=== PATIENT | female | born 1975 | race African-American/Black ===

== ENCOUNTER 2018-08-27 21:19 | Emergency (ER) | payer MEDICAID ==
[~2018-08-27] VITALS: Ht 170.2 cm; Wt 79.4 kg
[2018-08-27 21:45] VITALS: BP 152/96
[2018-08-27] MEDS ORDERED: IBUPROFEN600 MG ORAL (21:57)
[2018-08-27] MEDS ORDERED: HYDROCODON-ACE1 EA15 ORAL (21:57)
--- NOTE | 2018-08-27 21:57 | Emergency Room Report ---
History of Present Illness General Chief Complaint: Pain Source: Patient Present Illness HPI Is a 43-year-old female who is right-hand dominant. She has no past medical history. She presents with chief complaint of back pain and left wrist pain. Onset was yesterday. 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 She then felt a sharp pain in her back going down her left leg. She also complaining of left wrist pain. No other trauma. Worse with movement. Denies any fever chills but denies any nausea vomiting. Denies any incontinence of bowel or urine. [id number] medicine is not helping. Pain is 8 out of 10. Better with rest. Worse with movement. Allergies: Coded Allergies: CODEINE (Verified Allergy, Unknown, 08/27/18) Patient History Past Medical History: see triage record, old chart reviewed Past Surgical History: none Pertinent Family History: none Social History: Denies: smoking Last Menstrual Period: 2014 Now: No : 2 Para: 2 Immunizations: other Reviewed Nursing Documentation: PMH: Agreed; PSxH: Agreed Nursing Documentation-PMH Past Medical History: No History, Except For Hx Cardiac Problems: Yes - hyperlipidemia Review of Systems Eye: Denies: eye pain, blurred vision ENT: Denies: ear pain, nose congestion, throat swelling Respiratory: Denies: cough, shortness of breath Cardiovascular: Denies: chest pain, palpitations Gastrointestinal: Denies: abdominal pain, diarrhea, nausea, vomiting Musculoskeletal: Reports: back pain, joint pain Skin: Denies: rash Neurological: Denies: headache, numbness Endocrine: Denies: increased thirst, increased urine Hematologic/Lymphatic: Denies: easy bruising All Other Systems: negative except mentioned in HPI Physical Exam Vital Signs Date Time Temp Pulse Resp B/P (MAP) Pulse Ox O2 Delivery O2 Flow Rate FiO2 08/27/18 21:35 97.7 81 18 154/99 97 Room Air vitals with high blood pressure Sp02 EP Interpretation: reviewed, normal General Appearance: well appearing, no apparent distress, alert Head: normocephalic, atraumatic Eyes: bilateral eye PERRL, bilateral eye EOMI ENT: hearing grossly normal, normal pharynx Neck: full range of motion, supple, no meningismus Respiratory: chest non-tender, lungs clear, normal breath sounds Cardiovascular #1: regular rate, rhythm, no murmur Gastrointestinal: normal bowel sounds, non tender, no mass, no organomegaly, no bruit, non-distended Musculoskeletal: back normal - tenderness along the left lower lumbar paraspinous muscle. No midline tendernes. No anesthesia., gait/station normal , normal range of motion, other - Left wrist: No deformity. Pulses normal. Pain with movement of the wrist with twisting. Mostly the base of the thumb. Neurologic: alert, oriented x3 Psychiatric: mood/affect normal Skin: warm/dry Procedures Splinting Splinting : Consent: Verbal Location: left wrist Pre-Made Type: velcro Splint: volar Pre-Proc Neuro Vasc Exam: normal Post-Proc Neuro Vasc Exam: normal Patient Tolerated: Well Complications: None Medical Decision Making Diagnostic Impression: Primary Impression: Sciatica of left side Additional Impression: Left wrist sprain Qualified Codes: S63.502A - Unspecified sprain of left wrist, initial encounter ER Course Patient with a wrist sprain. No fracture to indicate x-rays. No evidence of any septic joint. She also has evidence of sciatica. This may be secondary to stenosis versus herniation. No evidence of cauda equina syndrome, spinal epidural abscess or neoplastic process. Last Vital Signs Date Time Temp Pulse Resp B/P (MAP) Pulse Ox O2 Delivery O2 Flow Rate FiO2 08/27/18 21:35 97.7 81 18 154/99 97 Room Air Status: improved Disposition: HOME, SELF-CARE Condition: Stable Scripts Ibuprofen* (MOTRIN*) 600 Mg Tablet 600 MG ORAL THREE TIMES A DAY, #30 TAB 0 Refills Prov: Miquel Hollis MD 08/27/18 Hydrocodone/Acetaminophen 5-325* (HYDROCODONE/ACETAMINOPHEN 5-325*) 1 Each Tablet 1 TAB ORAL Q6H PRN for For Pain, #20 TAB 0 Refills Prov: Miquel Hollis MD 08/27/18 Referrals: NOT CHOSEN IPA/,REFERRING (PCP) Additional Instructions: No heavy lifting. Lift the legs and either back. Follow-up your doctor in 7 days. Return for worsening of symptom. Miquel Hollis MD Aug 27, 2018 21:57
[2018-08-27] MEDS ORDERED: Norco 5mg/325mg tab ORAL ONE (22:00)
[2018-08-27 22:16] VITALS: BP 151/92
== END 2018-08-27 22:16 | disposition home or self-care (01) ==
LOC: EMR 21:38
DX: S63.502A Unspecified sprain of left wrist, initial encounter (principal); M54.42 Lumbago with sciatica, left side; E78.5 Hyperlipidemia, unspecified; Z88.5 Allergy status to narcotic agent; X50.0XXA Overexertion from strenuous movement or load, initial encounter; Y92.89 Other specified places as the place of occurrence of the external cause
CPT/HCPCS: 99283

== ENCOUNTER 2018-09-15 23:09 | Emergency (ER) | payer MEDICAID ==
[~2018-09-15] VITALS: Ht 170.2 cm; Wt 78.0 kg
[~2018-09-15 23:09] MED LIST: HYDROCODON-ACE1 EA15 ORAL; IBUPROFEN600 MG ORAL
[2018-09-15] MEDS ORDERED: ATORVASTATIN CA20 MG ORAL (23:26)
[2018-09-15] MEDS ORDERED: ASPIR 8181 MG ORAL (23:26)
[2018-09-16] MEDS ORDERED: IBUPROFEN600 MG ORAL (01:28)
[2018-09-16] MEDS ORDERED: ZITHROMAX250 MG ORAL (01:28)
[2018-09-16 01:35] VITALS: BP 149/97
--- NOTE | 2018-09-16 11:01 | Diagnostic Imaging Report ---
Indication: Shortness of breath Technique: One view of the chest Comparison: none Findings: Lungs and pleural spaces are clear. Heart size is normal Impression: No acute process
--- NOTE | 2018-09-17 08:30 | Emergency Room Report ---
History of Present Illness General Chief Complaint: Pain Source: Patient Present Illness HPI Patient's 43-year-old female presented after increased right-sided shoulder pain. The patient reports having increased pain associated with cough. She had recent sore throat. She had been not been of any fever. Pain is worse with movements. Is also worse with deep breath. She denies any vomiting or diarrhea. She denies leg pain or swelling. Allergies: Coded Allergies: CODEINE (Verified Allergy, Unknown, 08/27/18) Patient History Past Medical History: see triage record Last Menstrual Period: n/a : 2 Para: 2 Reviewed Nursing Documentation: PMH: Agreed; PSxH: Agreed Nursing Documentation-PMH Past Medical History: No History, Except For Hx Cardiac Problems: Yes - hyperlipidemia Review of Systems All Other Systems: negative except mentioned in HPI Physical Exam Vital Signs Date Time Temp Pulse Resp B/P (MAP) Pulse Ox O2 Delivery O2 Flow Rate FiO2 09/15/18 23:21 97.9 83 18 149/97 97 Room Air General Appearance: well appearing, no apparent distress, alert, GCS 15, non- toxic Head: normocephalic, atraumatic ENT: hearing grossly normal, normal voice Neck: full range of motion, supple Respiratory: no respiratory distress, rhonchi, speaking full sentences Gastrointestinal: normal inspection, soft Musculoskeletal: normal inspection, back normal, no calf tenderness Neurologic: normal inspection, alert, oriented x3, responsive, normal gait Psychiatric: mood/affect normal Skin: no rash Medical Decision Making Diagnostic Impression: Primary Impression: Pneumonia ER Course Patient presented for right-sided chest pain. Differential diagnosis included but was not limited to acute coronary syndrome, pulmonary embolism, pneumonia, aortic dissection, shingles, pneumothorax, aortic dissection, esophageal rupture , pericarditis. Because of complexity of patient's case imaging studies were ordered. Chest x-ray one view read by radiology showed cardiac size without evident infiltrate. The patient was noted to have the leg exam consistent with pneumonia. The patient was given prescription for antibiotics and cough medications. She is advised to recheck with primary care physician. Last Vital Signs Date Time Temp Pulse Resp B/P (MAP) Pulse Ox O2 Delivery O2 Flow Rate FiO2 09/16/18 01:35 97.9 83 18 149/97 97 Room Air Status: improved Disposition: HOME, SELF-CARE Condition: Stable Scripts Azithromycin* (ZITHROMAX*) 250 Mg Tablet 250 MG ORAL DAILY, #6 TAB 0 Refills Take two tables once daily for 1 day, then one tablet once daily for 4 days. Prov: Saeid Hou MD 09/16/18 Ibuprofen* (MOTRIN*) 600 Mg Tablet 600 MG ORAL Q8H PRN for For Pain, #30 TAB 0 Refills Prov: Saeid Hou MD 09/16/18 Referrals: NON PHYSICIAN (PCP) Patient Instructions: Pneumonitis Saeid Hou MD Sep 17, 2018 08:30
== END 2018-09-16 01:35 | disposition home or self-care (01) ==
LOC: EMR 23:39
DX: J18.9 Pneumonia, unspecified organism (principal); R05 Cough; M25.511 Pain in right shoulder; Z88.6 Allergy status to analgesic agent
CPT/HCPCS: 71045; 99282

== ENCOUNTER 2019-03-06 20:35 | Emergency (ER) | payer MEDICAID ==
[~2019-03-06] VITALS: Ht 170.2 cm; Wt 79.4 kg
[~2019-03-06 20:35] MED LIST changes: +ASPIR 8181 MG ORAL; +ATORVASTATIN CA20 MG ORAL; +ZITHROMAX250 MG ORAL
--- NOTE | 2019-03-06 20:46 | NUR ---
ED Nurse Note: Pt came from home c/o pain on left side since January 2019 and pain on left mid back since January 2019 but worse today. / pain dul constant pain. No trauma.
[2019-03-06 20:47] VITALS: BP 149/99
[2019-03-06] MEDS ORDERED: Ketorolac 30mg Inj IM ONE (21:00)
--- NOTE | 2019-03-06 21:00 | Emergency Room Report ---
History of Present Illness General Chief Complaint: Upper Extremity Injury Source: Patient Present Illness HPI Patient presents with left-sided lower back and also upper back pain. It's been there since February 13. She's been taking Tylenol PM. She's occasionally woke up with sweats. She has a dry nonproductive cough. The pain is rated 7- 7.5/10 and aching and dull. She says that she had this type of pain which had pneumonia in the past. It's worse when she takes a deep breath and changes position. She denies edema or calf pain. No sore throat or nasal congestion. No nausea, vomiting, diarrhea, dysuria. She is not at this time. She has lower back muscle spasms. These are from a prior back injury that's been evaluated. In the past she's taken muscle relaxants but does not have them at this time. There is no numbness or radiation of the pain down her leg. This is also on her left side. Had a work injury with a junior placed in R humerus. No palpitations, nausea, vomiting, diarrhea, dysuria, abdominal pain, depression , visual changes, headache. Allergies: Coded Allergies: CODEINE (Verified Allergy, Unknown, 08/27/18) Patient History Past Medical History: see triage record Social History: Denies: smoking Social History Narrative Took [employer] here - disabled Last Menstrual Period: na Now: No : 2 Para: 2 Reviewed Nursing Documentation: PMH: Agreed; PSxH: Agreed Nursing Documentation-PMH Past Medical History: No History, Except For Hx Cardiac Problems: Yes - hyperlipidemia Review of Systems All Other Systems: negative except mentioned in HPI Physical Exam Vital Signs Date Time Temp Pulse Resp B/P (MAP) Pulse Ox O2 Delivery O2 Flow Rate FiO2 03/06/19 20:39 98.2 93 18 97 Room Air 03/06/19 20:47 149/99 Sp02 EP Interpretation: reviewed, normal General Appearance: well appearing, no apparent distress, GCS 15 Head: normocephalic, atraumatic Eyes: bilateral eye normal inspection, bilateral eye PERRL ENT: hearing grossly normal, normal voice, moist mucus membranes Neck: full range of motion, supple Respiratory: lungs clear, normal breath sounds, no respiratory distress, speaking full sentences, other - Posterior medial scapular muscle spasm and tenderness to percussion re-creating the pain Cardiovascular #1: regular rate, rhythm, no edema Cardiovascular #2: 2+ radial (R) Gastrointestinal: normal inspection Musculoskeletal: gait/station normal, normal range of motion, no calf tenderness Neurologic: alert, oriented x3, grossly normal Psychiatric: mood/affect normal Skin: no rash Medical Decision Making Diagnostic Impression: Primary Impression: Muscle spasm ER Course Patient presents with left-sided lower and upper back pain. Differential includes muscle spasm, strain, pneumonia, pulmonary embolus amongst others. Based on her physical exam pulmonary embolus is less likely. Patient will be evaluated with a chest x-ray. She will receive Toradol and Soma. CXR normal. Improved. Discussed treatment plan. Patient stable for outpatient observation and treatment. Chest X-Ray Diagnostic Results Chest X-Ray Diagnostic Results : Chest X-Ray Ordered: Yes # of Views/Limited/Complete: 1 View Indication: Chest Pain EP Interpretation: Yes Interpretation: no consolidation, no effusion, no pneumothorax Impression: No acute disease Electronically Signed by: Electronically signed by Luis Antonio Curran MD Last Vital Signs Date Time Temp Pulse Resp B/P (MAP) Pulse Ox O2 Delivery O2 Flow Rate FiO2 03/06/19 22:07 98.2 90 16 147/89 99 Room Air Status: improved Disposition: HOME, SELF-CARE Condition: Improved Scripts Hydrocodone Bit/Acetaminophen 5-325* (NORCO 5-325*) 1 Each Tablet 1 TAB ORAL Q6H PRN for For Pain, #8 TAB 0 Refills Prov: Luis Antonio Curran MD 03/06/19 Methocarbamol* (ROBAXIN*) 500 Mg Tablet 500 MG PO TID, #10 TAB 0 Refills Prov: Luis Antonio Curran MD 03/06/19 Ibuprofen* (MOTRIN*) 600 Mg Tablet 600 MG ORAL Q6H PRN for For Pain, #20 TAB Prov: Luis Antonio Curran MD 03/06/19 Referrals: NON PHYSICIAN (PCP) Luis Antonio Curran MD March 06, 2019 21:00
--- NOTE | 2019-03-06 21:44 | Diagnostic Imaging Report ---
EXAM: XR Chest, 1 View CLINICAL HISTORY: Chest pain TECHNIQUE: Frontal view of the chest. COMPARISON: 09/16/2018 FINDINGS: Lungs: Unremarkable. No consolidation. Pleural space: Unremarkable. No pneumothorax. Heart: Unremarkable. No cardiomegaly. Mediastinum: Unremarkable. Bones/joints: No acute osseous abnormality. IMPRESSION: No acute cardiopulmonary process.
[2019-03-06] MEDS ORDERED: IBUPROFEN600 MG ORAL (22:02)
[2019-03-06] MEDS ORDERED: NORCO 5-325 TA1 EACH ORAL ×2 (22:02→22:04)
[2019-03-06] MEDS ORDERED: ROBAXIN500 MG PO (22:02)
[2019-03-06 22:07] VITALS: BP 147/89
--- NOTE | 2019-03-06 22:08 | NUR ---
ER DISCHARGE NOTE: Patient is cleared to be discharged per ERMD, pt is aox4, on room air, with stable vital signs. pt was given dc and prescription instructions, pt was able to verbalize understanding, pt id bandremoved . pt is able to ambulate with steady gait. pt took all belongings.
== END 2019-03-06 22:07 | disposition home or self-care (01) ==
LOC: EMR 20:54
DX: M62.838 Other muscle spasm (principal); M54.5 Low back pain; M54.6 Pain in thoracic spine; R05 Cough; E78.5 Hyperlipidemia, unspecified; Z88.6 Allergy status to analgesic agent
CPT/HCPCS: 71045; 96372; 99283; J1885

== ENCOUNTER 2019-05-25 22:14 | Emergency (ER) | payer MEDICAID ==
[~2019-05-25] VITALS: Ht 170.2 cm; Wt 77.1 kg
[~2019-05-25 22:14] MED LIST changes: +NORCO 5-325 TA1 EACH ORAL; +ROBAXIN500 MG PO
[2019-05-25 22:55] VITALS: BP 135/94
--- NOTE | 2019-05-25 22:55 | NUR ---
ED Nurse Note: PT WALKED IN C/O ROMERO X 4 WKS, DENIES N/V/ BUT REPORTS DIZZINESS WELL. PT VSS, AMBULATORY W/ STEADY GAIT, DENIES USE OF ILLECIT DRUG USE NOR SMOKING NOR DRINKING ALCOHOL. WILL CONT MONITOR.
[2019-05-25] MEDS ORDERED: DiphenhydrAMINE 50mg/ml Inj IVP ONE (23:00)
[2019-05-25] MEDS ORDERED: Dexamethasone 4mg/ml vial IVP ONE (23:00)
[2019-05-25] MEDS ORDERED: RIBOFLAVIN100 MG PO (23:43)
--- NOTE | 2019-05-25 23:43 | Emergency Room Report ---
History of Present Illness General Chief Complaint: Headache Source: Patient Present Illness HPI 44-year-old female presents with frontal headache, patient has a history of headaches, she describes the headache as achy squeezing, no aggravating or alleviating factors, severity is moderate, came on gradually not sudden, patient denies any chest pain shortness of breath, no visual changes, patient presents for persistent headache. Allergies: Coded Allergies: CODEINE (Verified Allergy, Unknown, 08/27/18) Patient History Past Medical History: see triage record Last Menstrual Period: n/a Reviewed Nursing Documentation: PMH: Agreed; PSxH: Agreed Nursing Documentation-PMH Past Medical History: No History, Except For Hx Cardiac Problems: Yes - hyperlipidemia Review of Systems All Other Systems: negative except mentioned in HPI Physical Exam Vital Signs Date Time Temp Pulse Resp B/P (MAP) Pulse Ox O2 Delivery O2 Flow Rate FiO2 05/25/19 22:35 98.2 88 18 135/94 (108) 97 Room Air Sp02 EP Interpretation: reviewed, normal General Appearance: well appearing, no apparent distress, alert Head: normocephalic, atraumatic Eyes: bilateral eye PERRL, bilateral eye EOMI ENT: uvula midline, moist mucus membranes Neck: supple, thyroid normal, supple/symm/no masses Respiratory: lungs clear, no respiratory distress, no retraction, no accessory muscle use Cardiovascular #1: normal peripheral pulses, regular rate, rhythm, no edema, no gallop, no murmur Gastrointestinal: non tender, soft, no guarding, no rebound Musculoskeletal: normal inspection Neurologic: alert, oriented x3, 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 There are no red flags of ROMERO, not sudden in onset, not maximal in onset, no acute neurological findings, no fever with head stiffness. History of headache yes Low suspicion for subarachnoid hemorrhage, encephalitis, meningitis. Patient given headache cocktail, headache completely resolved, will disposition patient home with return precautions Last Vital Signs Date Time Temp Pulse Resp B/P (MAP) Pulse Ox O2 Delivery O2 Flow Rate FiO2 05/25/19 22:55 98.2 88 18 135/94 97 Room Air Disposition: HOME, SELF-CARE Condition: Stable Scripts Riboflavin (RIBOFLAVIN) 100 Mg Tablet 400 MG PO DAILY, #120 TAB Prov: Erik Payton MD 05/25/19 Referrals: NON PHYSICIAN (PCP) [facility] Patient Instructions: General Headache Without Cause Additional Instructions: The patient was provided with discharge instructions, notified to follow-up with a primary care doctor and or specialist in the next 24-48 hours, and to return to the ED if they have worsening of their symptoms. Please note that this report is being documented using Sonos technology. This can lead to erroneous entry secondary to incorrect interpretation by the dictating instrument. Please make a headache log, follow up with a neurologist Erik Payton MD May 25, 2019 23:43
[2019-05-25 23:45] VITALS: BP 140/88
--- NOTE | 2019-05-25 23:45 | NUR ---
ER DISCHARGE NOTE: Patient is cleared to be discharged per ERMD, pt is aox4, on room air, with stable vital signs. pt was given dc and prescription instructions, pt was able to verbalize understanding, pt id band and iv site removed without complications. pt is able to ambulate with steady gait. pt took all belongings.
== END 2019-05-25 23:45 | disposition home or self-care (01) ==
LOC: EMR 22:20
DX: R51 Headache (principal); Z88.6 Allergy status to analgesic agent; E78.5 Hyperlipidemia, unspecified
CPT/HCPCS: 96374; 96375; 99284; J0780; J1100; J1200

== ENCOUNTER 2019-07-26 13:48 | Emergency (ER) | payer MEDICARE, MEDICAID ==
[~2019-07-26] VITALS: Ht 170.2 cm; Wt 74.8 kg
[~2019-07-26 13:48] MED LIST changes: +RIBOFLAVIN100 MG PO
--- NOTE | 2019-07-26 14:01 | NUR ---
ED Nurse Note: PT WALKED IN TO ER TODAY FROM HOME. AOX4. PT C/O LEFT SHOULDER PAIN, 07/06 X 2-3 DAYS AGO. PT DENIES INJURY OR FALL. ON ASSESSMENT, PT HAS FULL ROM OF SHOULDER, ELBOW, WRIST, AND DIGITS. PT DENIES NUMBNESS OR TINGLING. CIRCULATION AND SENSATION INTACT.
[2019-07-26 14:03] VITALS: BP 148/92
--- NOTE | 2019-07-26 14:25 | NUR ---
ED Nurse Note: RADIOLOGY CALLED FOR XRAY.
--- NOTE | 2019-07-26 14:43 | Emergency Room Report ---
History of Present Illness General Chief Complaint: Pain Source: Patient Present Illness HPI 44-year-old female with no significant past medical history here complaining of pain in her left shoulder x2 days after lifting heavy objects. Patient rating the pain 7 out of 10 without radiation denying tingling and numbness. Has full range of motion. Denies any direct fall or injury. Reports that she has been taking Tylenol for pain with minimal relief. Patient has not been taking any ibuprofen due to having a surgery done on her right forearm in a few days for removal of a junior in her forearm. Patient denies chest pain, shortness of breath , chest pain radiating to left shoulder, rotation, abdominal pain, nausea vomiting. Denies all other associated symptoms. Patient had a hysterectomy years ago and does not have any menses anymore. Allergies: Coded Allergies: CODEINE (Verified Allergy, Unknown, 08/27/18) Patient History Past Medical History: see triage record Past Surgical History: unable to obtain Pertinent Family History: none Now: No Immunizations: UTD Reviewed Nursing Documentation: PMH: Agreed; PSxH: Agreed Nursing Documentation-PMH Hx Cardiac Problems: Yes - hyperlipidemia Review of Systems All Other Systems: negative except mentioned in HPI Physical Exam Vital Signs Date Time Temp Pulse Resp B/P (MAP) Pulse Ox O2 Delivery O2 Flow Rate FiO2 07/26/19 13:57 98.2 96 18 152/96 (114) 96 Room Air Sp02 EP Interpretation: reviewed, normal General Appearance: no apparent distress, alert, GCS 15, non-toxic Head: normocephalic, atraumatic Eyes: bilateral eye normal inspection, bilateral eye PERRL ENT: hearing grossly normal, normal pharynx, no angioedema, normal voice, TMs + canals normal Neck: full range of motion, supple/symm/no masses Respiratory: chest non-tender, lungs clear, normal breath sounds, no wheezing, speaking full sentences Cardiovascular #1: regular rate, rhythm, no edema, no murmur Gastrointestinal: normal bowel sounds, non tender, soft, non-distended, no guarding, no rebound Genitourinary: no CVA tenderness Musculoskeletal: back normal, digits/nails normal, gait/station normal, normal range of motion, non-tender, other - No impingement Neurologic: alert, oriented x3, responsive, motor strength/tone normal, sensory intact, speech normal Psychiatric: normal inspection, judgement/insight normal, memory normal, mood/ affect normal Skin: no rash Lymphatic: no adenopathy Medical Decision Making PA Attestation All my diagnosis and treatment plans were reviewed ad discussed with my supervising physician Dr. Hou Diagnostic Impression: Primary Impression: Left shoulder tendinitis ER Course 44-year-old female with no significant past medical history here complaining of pain in her left shoulder x2 days after lifting heavy objects. Patient rating the pain 7 out of 10 without radiation denying tingling and numbness. Has full range of motion. Denies any direct fall or injury. Reports that she has been taking Tylenol for pain with minimal relief. Patient has not been taking any ibuprofen due to having a surgery done on her right forearm in a few days for removal of a junior in her forearm. Patient denies chest pain, shortness of breath , chest pain radiating to left shoulder, rotation, abdominal pain, nausea vomiting. Denies all other associated symptoms. Patient had a hysterectomy years ago and does not have any menses anymore. Ddx considered but are not limited to : Shoulder sprain versus strain versus fracture versus tendinitis Vital signs: are WNL, pt. is afebrile H&PE are most consistent with: Tendinitis ORDERS: shoulder x-ray, lidocaine patch, tylenol ED INTERVENTIONS: none DISCHARGE: At this time pt. is stable for d/c to home. Will provide printed patient care instructions, and any necessary prescriptions. Care plan and follow up instructions have been discussed with the patient prior to discharge. Take medication as directed follow-up with your primary care provider for physical therapy avoid strenuous physical activity Other X-Ray Diagnostic Results Other X-Ray Diagnostic Results : X-Ray ordered: shoulder # of Views/Limited Vs Complete: 3 View Indication: Pain EP Interpretation: Yes PA Xray: Interpretation reviewed, by supervising MD, and agrees with findings. Interpretation: no dislocation, no soft tissue swelling, no fractures Impression: No acute disease Electronically Signed by: Reg Medina PA-C Last Vital Signs Date Time Temp Pulse Resp B/P (MAP) Pulse Ox O2 Delivery O2 Flow Rate FiO2 07/26/19 14:03 98.4 92 17 148/92 98 Room Air Disposition: HOME, SELF-CARE Condition: Stable Scripts Lidocaine Patch* (Lidoderm Patch*) 1 Each Adh..patch 1 PATCH TOPIC DAILY, #30 PATCH Patch(es) may remain in place for up to 12 hours in any 24-hour period. Prov: Reg Evans 07/26/19 Acetaminophen (8 HOUR) 650 Mg Tablet.er 650 MG ORAL Q8H, #30 TAB Prov: Reg Evans 07/26/19 Referrals: NON PHYSICIAN (PCP) Patient Instructions: Bicipital Tendonitis Additional Instructions: Take medication as directed follow-up with your primary care provider if worsening symptoms return to the emergency room Reg Evans Jul 26, 2019 14:43
[2019-07-26] MEDS ORDERED: 8 HOUR650 MG ORAL (14:45)
[2019-07-26] MEDS ORDERED: LIDODERM700 M1 TOPIC (14:45)
--- NOTE | 2019-07-26 15:19 | NUR ---
ED Nurse Note: PT SITTING PEACEFULLY IN BED IN NAD. AOX4. PRESCRIPTIONS AND DISCHARGE PAPERWORK EXPLAINED TO PT. PT VERBALIZES UNDERSTANDING AND ALL QUESTIONS ANSWERED. PRESCRIPTIONS AND DISCHARGE PAPERWORK GIVEN TO PT AND ID WRISTBAND REMOVED. PT WALKED OUT OF ER WITH STEADY GAIT AND ALL BELONGINGS.
[2019-07-26 15:20] VITALS: BP 142/86
--- NOTE | 2019-07-26 16:31 | Diagnostic Imaging Report ---
Indication: Trauma, pain Technique: 3 views of the left shoulder Comparison: none Findings: No acute fractures. No dislocations. Joint spaces are preserved. Impression: Negative
== END 2019-07-26 15:21 | disposition home or self-care (01) ==
LOC: EMR 14:20
DX: M75.22 Bicipital tendinitis, left shoulder (principal); E78.5 Hyperlipidemia, unspecified; Z88.6 Allergy status to analgesic agent; Z90.710 Acquired absence of both cervix and uterus
CPT/HCPCS: 99283

== ENCOUNTER 2019-08-14 22:21 | Emergency (ER) | payer MEDICARE, MEDICAID ==
[~2019-08-14] VITALS: Ht 170.2 cm; Wt 81.6 kg
[~2019-08-14 22:21] MED LIST changes: +8 HOUR650 MG ORAL; +LIDODERM700 M1 TOPIC
--- NOTE | 2019-08-14 22:58 | NUR ---
ER Nurse Note: Pt walked in c/o LT ankle swelling and pain s/o fall on Jul 7. Pt stated she was walking downstairs and fell, twisting her ankle. LT ankle swelling, skin intact, warm to touch. Pt able to bear weight with slight pressrue. Cap refilll less than 3 secs. X-ray called. Will continue to montior.
--- NOTE | 2019-08-14 23:32 | Emergency Room Report ---
History of Present Illness General Chief Complaint: Lower Extremity Injury Source: Patient, Medical Record Present Illness HPI This a 44-year-old female who presents with chief complaint of left ankle pain. She tripped and twisted her foot/ankle about 2 weeks ago as she was going down the steps. It was swollen and tender. Is been persistent since then. She is limping. No nausea no vomiting. No loss of consciousness. Pain is 6 out of 10. Denies any other complaint. Allergies: Coded Allergies: CODEINE (Verified Allergy, Unknown, 08/27/18) Patient History Past Medical History: see triage record, old chart reviewed Past Surgical History: other Pertinent Family History: none Social History: Denies: smoking Now: No Immunizations: other Reviewed Nursing Documentation: PMH: Agreed; PSxH: Agreed Nursing Documentation-PMH Hx Cardiac Problems: No - HCL Review of Systems Eye: Denies: eye pain, blurred vision ENT: Denies: ear pain, nose congestion, throat swelling Respiratory: Denies: cough, shortness of breath Cardiovascular: Denies: chest pain, palpitations Gastrointestinal: Denies: abdominal pain, diarrhea, nausea, vomiting Musculoskeletal: Reports: joint pain; Denies: back pain Skin: Denies: rash Neurological: Denies: headache, numbness Endocrine: Denies: increased thirst, increased urine Hematologic/Lymphatic: Denies: easy bruising All Other Systems: negative except mentioned in HPI Physical Exam Vital Signs Date Time Temp Pulse Resp B/P (MAP) Pulse Ox O2 Delivery O2 Flow Rate FiO2 08/14/19 22:36 98.1 84 18 148/102 (117) 96 Room Air Vitals with high blood pressure Sp02 EP Interpretation: reviewed, normal General Appearance: well appearing, no apparent distress, alert Head: normocephalic, atraumatic Eyes: bilateral eye PERRL, bilateral eye EOMI ENT: hearing grossly normal, normal pharynx Neck: full range of motion, supple, no meningismus Respiratory: chest non-tender, lungs clear, normal breath sounds Cardiovascular #1: regular rate, rhythm, no murmur Gastrointestinal: normal bowel sounds, non tender, no mass, no organomegaly, no bruit, non-distended Musculoskeletal: back normal, gait/station normal, normal range of motion, other - Left ankle: She has edema and tenderness to the lateral malleolus and dorsum of foot. Pulse normal. Ankle stable. Psychiatric: mood/affect normal Procedures Splinting Splinting : Consent: Verbal Location: Left ankle Pre-Made Type: aircast Pre-Proc Neuro Vasc Exam: normal Post-Proc Neuro Vasc Exam: normal Patient Tolerated: Well Complications: None Medical Decision Making Diagnostic Impression: Primary Impression: Left ankle sprain Qualified Codes: S93.402A - Sprain of unspecified ligament of left ankle, initial encounter ER Course This patient presents with a ankle sprain. I see no obvious new fracture. Will discharge home with a splint. She may need an MRI. She has orthopedic doctor already. Other X-Ray Diagnostic Results Other X-Ray Diagnostic Results : X-Ray ordered: LEft ankle x-rays # of Views/Limited Vs Complete: 3 View Indication: Pain EP Interpretation: Yes Interpretation: no dislocation, no soft tissue swelling, no fractures, other - Well-healed avulsion fracture of talus Impression: No acute disease Electronically Signed by: Miquel Hollis MD Last Vital Signs Date Time Temp Pulse Resp B/P (MAP) Pulse Ox O2 Delivery O2 Flow Rate FiO2 08/14/19 22:36 98.1 84 18 148/102 (117) 96 Room Air Status: improved Disposition: HOME, SELF-CARE Referrals: NON PHYSICIAN (PCP) Patient Instructions: Ankle Sprain Additional Instructions: Elevate foot. Ice pack to the area. Use crutches as needed. Follow-up with orthopedic doctor in a week. You may need an MRI. Return if worse. Miquel Hollis MD Aug 14, 2019 23:32
[2019-08-14 23:36] VITALS: BP 148/102
--- NOTE | 2019-08-14 23:36 | NUR ---
ER Nurse Note: Pt seen, treated, medically cleared for discharge by ERMD. Discharge instuctions and prescriptions given with repeat verbalization by pt. Emphasized to follow up with primay care provider. All orders completed per ERMD orders. Pt a&ox4, VSS, no signs of distress. ID band removed. LT ankle air splinted and provided crutches; crutch teaching provided with repeat demonstration by pt. All questions answered per pt's questions. Pt left with all belongings, left with own transportation.
--- NOTE | 2019-08-14 23:40 | Diagnostic Imaging Report ---
EXAM: XR Left Foot Complete, 3 or More Views CLINICAL HISTORY: TRAUMA TECHNIQUE: Frontal, lateral and oblique views of the left foot. COMPARISON: No relevant prior studies available. FINDINGS: Bones joints: Mild cortical irregularity of the head of the proximal phalanx of the third toe. No dislocation. Soft tissues: Unremarkable. No radiopaque foreign body. IMPRESSION: There is mild cortical irregularity of the head of the proximal phalanx of the third toe which may be due to degenerative changes or nondisplaced fracture.
== END 2019-08-14 23:36 | disposition home or self-care (01) ==
LOC: EMR 23:15
DX: S93.402A Sprain of unspecified ligament of left ankle, initial encounter (principal); Z88.6 Allergy status to analgesic agent; X50.1XXA Overexertion from prolonged static or awkward postures, initial encounter; Y92.9 Unspecified place or not applicable
CPT/HCPCS: 29515; 99283

== ENCOUNTER 2019-09-07 11:57 | Emergency (ER) | payer MEDICARE, MEDICAID ==
[~2019-09-07] VITALS: Ht 170.2 cm; Wt 75.3 kg
[2019-09-07] MEDS ORDERED: ASPIRIN81 MG ORAL (12:08)
--- NOTE | 2019-09-07 12:10 | NUR ---
ED Nurse Note: Pt walked in EDb from home c/o sore throat since yesterday with difficulty swallowing. Pt denies n/v/diarrhea.
--- NOTE | 2019-09-07 12:37 | NUR ---
ED Nurse Note: ERMD with patient.
[2019-09-07] MEDS ORDERED: Lidocaine 2% Visc 15ml soln ORAL ONE (12:45)
[2019-09-07 12:46] VITALS: BP 146/92
--- NOTE | 2019-09-07 13:04 | Emergency Room Report ---
History of Present Illness General Chief Complaint: Sore Throat Source: Patient Present Illness HPI 44-year-old female with no significant past medical history presents to the emergency department complaining of 9 out of 10 severity sore throat with fevers and chills since yesterday. Patient reports pain is exacerbated upon swallowing she states that yesterday she was able to swallow after using Chloraseptic spray however she states today she is in too much pain to swallow so she has been spitting out her saliva. Patient states that this is purely for comfort she is able to swallow if need be she denies swelling of the throat , lips or tongue. Patient reports pain is generalized in the throat it is not unilateral. Patient denies cough, recent travel or history of immune compromise. Patient reports she has been around many sick little children lately. Patient denies any relieving factors at this time. Denies ear pain, lethargy, neck pain/stiffness, irritability, photophobia dehydration, N/V/D. Denies Cp, Palpitations, LOC, AMS, seizures, paresthesias, or changes in Hearing or vision, no Sudden severe ROMERO. Denies hx of smoking, asthma or COPD. Allergies: Coded Allergies: CODEINE (Verified Allergy, Unknown, 08/27/18) Patient History Past Medical History: see triage record Past Surgical History: none Pertinent Family History: none Now: No Immunizations: UTD Reviewed Nursing Documentation: PMH: Agreed; PSxH: Agreed Nursing Documentation-PMH Past Medical History: No History, Except For Hx Cardiac Problems: No - HCL Review of Systems All Other Systems: negative except mentioned in HPI Physical Exam Vital Signs Date Time Temp Pulse Resp B/P (MAP) Pulse Ox O2 Delivery O2 Flow Rate FiO2 09/07/19 12:05 98.8 96 17 146/92 (110) 99 Room Air Sp02 EP Interpretation: reviewed, normal General Appearance: no apparent distress, alert, GCS 15, non-toxic Head: normocephalic, atraumatic Eyes: bilateral eye normal inspection, bilateral eye PERRL ENT: hearing grossly normal, normal voice, TMs + canals normal, uvula midline, moist mucus membranes, nasal congestion, tonsillar swelling, pharyngeal erythema , tonsillar exudate Neck: full range of motion Respiratory: lungs clear, normal breath sounds, no accessory muscle use, no wheezing, speaking full sentences Cardiovascular #1: regular rate, rhythm Musculoskeletal: gait/station normal, normal range of motion, non-tender Neurologic: alert, oriented x3, responsive, motor strength/tone normal, sensory intact, speech normal, grossly normal Psychiatric: judgement/insight normal Skin: no rash Lymphatic: no adenopathy Medical Decision Making PA Attestation Dr. Hou is my supervising Physician whom patient management has been discussed with. Diagnostic Impression: Primary Impression: Streptococcal pharyngitis ER Course 44-year-old female with no significant past medical history presents to the emergency department complaining of 9 out of 10 severity sore throat with fevers and chills since yesterday. Patient reports pain is exacerbated upon swallowing she states that yesterday she was able to swallow after using Chloraseptic spray however she states today she is in too much pain to swallow so she has been spitting out her saliva. Patient states that this is purely for comfort she is able to swallow if need be she denies swelling of the throat , lips or tongue. Patient reports pain is generalized in the throat it is not unilateral. Patient denies cough, recent travel or history of immune compromise. Patient reports she has been around many sick little children lately. Patient denies any relieving factors at this time. Denies ear pain, lethargy, neck pain/stiffness, irritability, photophobia dehydration, N/V/D. Denies Cp, Palpitations, LOC, AMS, seizures, paresthesias, or changes in Hearing or vision, no Sudden severe ROMERO. Denies hx of smoking, asthma or COPD. Ddx considered but are not limited to: pharyngitis, strep, ZINC MINER BLASTING, ludwigs angina, URI Vital signs: are WNL, pt. is afebrile H&PE are most consistent with: pharyngitis presumed strep. ORDERS: None required at this time as the diagnosis is clinical ED INTERVENTIONS: none required at this time. DISCHARGE: At this time pt. is stable for d/c to home. Will provide printed patient care instructions, and any necessary prescriptions. Care plan and follow up instructions have been discussed with the patient prior to discharge. Last Vital Signs Date Time Temp Pulse Resp B/P (MAP) Pulse Ox O2 Delivery O2 Flow Rate FiO2 09/07/19 12:46 98.8 78 17 146/92 99 Room Air Disposition: HOME, SELF-CARE Condition: Stable Patient Instructions: Strep Throat Additional Instructions: Take medications as directed. Follow up with a Primary Care Provider in 3-5 days, even if your symptoms have resolved. --Please review list of primary care clinics, if you do not already have a primary care provider Return sooner to ED if new symptoms occur, or current symptoms become worse. - Please note that this Emergency Department Report was dictated using [employer] director technology software, occasionally this can lead to erroneous entry secondary to interpretation by the dictation equipment. Dawn Cifuentes Sep 07, 2019 13:04
[2019-09-07] MEDS ORDERED: IBUPROFEN600 MG ORAL (13:05)
[2019-09-07] MEDS ORDERED: AMOXICILLIN500 MG ORAL (13:05)
[2019-09-07] MEDS ORDERED: LIDOCAINE VISC100 ML ORAL (13:05)
[2019-09-07 13:14] VITALS: BP 146/92
--- NOTE | 2019-09-07 13:14 | NUR ---
ED Nurse Note: Pt cleared by ERMD discharge. DC instructions/prescription was given and explained to pt and verbalized understanding of teachings. All medical deviecs such as ID band removed. Pt is AAO x4, ambulatory and left with all personal belongings.
== END 2019-09-07 13:14 | disposition home or self-care (01) ==
LOC: EMR 13:05
DX: J02.0 Streptococcal pharyngitis (principal); Z88.6 Allergy status to analgesic agent
CPT/HCPCS: 99282

== ENCOUNTER 2019-10-19 21:01 | Emergency (ER) | payer MEDICARE, MEDICAID ==
[~2019-10-19] VITALS: Ht 170.2 cm; Wt 79.4 kg
[~2019-10-19 21:01] MED LIST changes: +AMOXICILLIN500 MG ORAL; +ASPIRIN81 MG ORAL; +LIDOCAINE VISC100 ML ORAL
[2019-10-19 21:14] VITALS: BP 140/92
--- NOTE | 2019-10-19 21:23 | NUR ---
ED Nurse Note: Patient walked in to ER c/o flu like symptoms x 2 days. AAO x4, VSS at this time.
--- NOTE | 2019-10-19 21:36 | Emergency Room Report ---
History of Present Illness General Chief Complaint: Flu Like Symptoms Source: Patient Present Illness HPI Patient presents with a scratchy throat, cough and muscle aches for 2 days worsening. Did not take any medication. Others in her family are also ill. She did not receive a flu vaccination. She is not documented fever. She rates the pain in her body and her throat is 6/10. She is been able to keep down fluids and solids. She denies any vomiting or diarrhea. She has some nausea. Her last period was 3 years ago. She denies dysuria. There are no rashes. No chest pain, palpitations, abdominal pain, shortness of breath, rashes, dizziness. Allergies: Coded Allergies: CODEINE (Verified Allergy, Unknown, 08/27/18) Patient History Past Medical History: see triage record Social History: Denies: smoking, alcohol use, drug use Social History Narrative not working Last Menstrual Period: 3 yearws Now: No - hysterectomy (2014) Reviewed Nursing Documentation: PMH: Agreed; PSxH: Agreed Nursing Documentation-PMH Past Medical History: No History, Except For Hx Cardiac Problems: No - HCL Review of Systems All Other Systems: negative except mentioned in HPI Physical Exam Vital Signs Date Time Temp Pulse Resp B/P (MAP) Pulse Ox O2 Delivery O2 Flow Rate FiO2 10/19/19 21:04 98.4 93 20 140/92 (108) 99 Room Air ENT: hearing grossly normal, TMs + canals normal, pharyngeal erythema, other - scratchy voice Neck: full range of motion, supple Respiratory: lungs clear, normal breath sounds Cardiovascular #1: regular rate, rhythm, no edema Cardiovascular #2: 2+ radial (R) Gastrointestinal: normal inspection, non tender, soft Genitourinary: no CVA tenderness Musculoskeletal: gait/station normal, no calf tenderness Neurologic: alert, oriented x3, grossly normal Psychiatric: mood/affect normal Skin: normal color, no rash Medical Decision Making Diagnostic Impression: Primary Impression: Influenza ER Course Patient presents with 2 days of upper respiratory symptoms. This is either viral syndrome and most likely influenza. Clinically she does not have pneumonia at this time. There is mild bronchospasm. Patient will be treated with Tamiflu and other symptoms will be addressed. Rectal emergency at this time. Patient is stable for outpatient observation and treatment. Last Vital Signs Date Time Temp Pulse Resp B/P (MAP) Pulse Ox O2 Delivery O2 Flow Rate FiO2 10/19/19 22:08 98.4 20 140/92 99 Room Air 10/19/19 21:14 93 Status: unchanged Disposition: HOME, SELF-CARE Condition: Stable Scripts Guaifenesin/Dextromethorphan (Robitussin Cough-Chest Dm Liq) 237 Ml Liquid 5 ML PO Q6HR, #100 ML Prov: Luis Antonio Curran MD 10/19/19 Albuterol Sulfate* (ALBUTEROL SULFATE MDI*) 8.5 Gm Hfa.aer.ad 2 PUFF INH Q6H, #1 EA 0 Refills Prov: Luis Antonio Curran MD 10/19/19 Ibuprofen* (MOTRIN*) 600 Mg Tablet 600 MG ORAL Q6H PRN for For Pain, #20 TAB 0 Refills Prov: Luis Antonio Curran MD 10/19/19 Oseltamivir Phosphate (Tamiflu) 75 Mg Capsule 75 MG ORAL TWICE A DAY, #10 CAP Prov: Luis Antonio Curran MD 10/19/19 Luis Antonio Curran MD Oct 19, 2019 21:36
[2019-10-19] MEDS ORDERED: TAMIFLU75 MG ORAL (21:51)
[2019-10-19] MEDS ORDERED: IBUPROFEN600 MG ORAL (21:51)
[2019-10-19] MEDS ORDERED: ROBITUSSIN COU237 M2 PO (21:51)
[2019-10-19] MEDS ORDERED: ALBUTEROL SULF8.5 GM INH (21:51)
[2019-10-19 22:08] VITALS: BP 140/92
--- NOTE | 2019-10-19 22:09 | NUR ---
ED Nurse Note: Pt cleared by health care Provider for discharge. DC instructions/prescription was given and explained to pt and verbalized understanding of teachings. All medical deviecs such as ID band removed. Pt is AAO x4, ambulatory and left with all personal belongings.
== END 2019-10-19 22:09 | disposition home or self-care (01) ==
LOC: EMR 21:15
DX: J11.1 Influenza due to unidentified influenza virus with other respiratory manifestations (principal); Z90.710 Acquired absence of both cervix and uterus; Z88.6 Allergy status to analgesic agent
CPT/HCPCS: 99282